=== PATIENT | female | born 1990 | race Caucasian/White ===

== ENCOUNTER 2017-02-20 14:41 | Emergency (ER) | payer MEDICARE, MEDICAID ==
[2017-02-20 16:01] LABS: BILIRUBIN,URINE NEGATIVE (NEGATIVE)
[2017-02-20 16:04] LABS: UA w/ MICROSCOPIC CHARGE YES
[2017-02-20 16:19] LABS: WBC,URINE >25 /HPF (0-5)
[2017-02-20 16:20] LABS: UR CULTURE IF IND INDICATED
[2017-02-20] MEDS ORDERED: NITROFURANTOIN MACRO 100 MG CAPSULE PO STA (16:34)
[2017-02-20] MEDS ORDERED: NITROFURANTOIN MACRO 100 MG CAPSULE PO ONE (16:41)
[2017-02-20 17:05] LABS: CALCIUM 8.8 mg/dL (8.5-10.3); CREATININE 0.7 mg/dL (0.4-1.0); POTASSIUM 3.8 mmol/L (3.5-5.0)
--- NOTE | 2017-02-20 17:29 | ED Physician Documentation ---
PD HPI FEMALE - Stated complaint Stated Complaint: FEMALE - Chief complaint Chief Complaint: General - History obtained from History obtained from: Patient - Additional information Additional information: The patient is a 26-year-old wheelchair bound, homeless female who presents with dysuria. She is wheelchair bound because of autonomic immune disorder causing autonomic neuropathy. She normally self catheterizes because of urinary retention, but because of her homelessness she is not able to find appropriate locations to perform self-catheterization. She recently had a urinalysis which was positive for infection, and her urologist suggested she come to the emergency department to have a Hernandez catheter placed. She reports low-grade fever and nausea. She denies vomiting. Review of Systems Constitutional: reports: Fever (low-grade) Nose: denies: Congestion Throat: denies: Sore throat Cardiac: denies: Chest pain / pressure Respiratory: denies: Dyspnea, Cough GI: reports: Nausea. denies: Abdominal Pain, Vomiting : reports: Dysuria Skin: denies: Rash Musculoskeletal: denies: Back pain Neurologic: denies: Headache PD PAST MEDICAL HISTORY - Past Medical History Past Medical History: Yes Cardiovascular: Hypertension, Other Respiratory: Sleep apnea, Other Neuro: CVA, Other Endocrine/Autoimmune: Systemic lupus erythematosus GI: Other : Retention, Other Musculoskeletal: Fibromyalgia Other Past Medical History: Hypophosphatemia,Antiphospholipid antibody syndrome , mixed connective tissue deasea, myasthenia gravis, autonomic neuropathy, POTS - Past Surgical History Past Surgical History: Yes - Present Medications Home Medications: Ambulatory Orders Medication Instructions Recorded Confirmed Nitrofurantoin [Macrobid] 100 mg PO BID #10 capsule 02/20/17 - Allergies Allergies/Adverse Reactions: Allergies Allergy/AdvReac Type Severity Reaction Status Date / Time Penicillins Allergy Unknown Verified 02/20/17 16:49 - Social History Does the pt smoke?: No Smoking Status: Never smoker Does the pt drink ETOH?: No Does the pt have substance abuse?: No - Immunizations Immunizations are current?: Yes - POLST Patient has POLST: No PD ED PE NORMAL - Vitals Vital signs reviewed: Yes (normal) - General General: Alert and oriented X 3, Well developed/nourished, Other (Arrives via wheelchair.) - HEENT HEENT: Atraumatic, Pharynx benign - Neck Neck: No adenopathy, No JVD - Cardiac Cardiac: RRR, No murmur - Respiratory Respiratory: No respiratory distress, Clear bilaterally - Abdomen Abdomen: Soft, Non tender - Back Back: No CVA TTP - Derm Derm: No rash - Extremities Extremities: No edema, No calf tenderness / cord - Neuro Neuro: Alert and oriented X 3, Normal speech, Other (Decreased strength in the lower extremities, without acute focal motor deficit.) Results - Vitals Vitals: Oxygen O2 Source Room air - Labs Labs: Microbiology 02/20/17 15:40 Urine Culture - Preliminary Urine,Catheterized Laboratory Tests 02/20/17 02/20/17 15:40 16:52 Sodium 140 Potassium 3.8 Chloride 107 Carbon Dioxide 28 Anion Gap 5.0 L BUN 9 Creatinine 0.7 Estimated GFR (MDRD) 100 Glucose 98 Calcium 8.8 Urine Color DARK YELLOW Urine Clarity CLOUDY Urine pH 6.0 Ur Specific [place] >=1.030 H Urine Protein 30 H Urine Glucose (UA) NEGATIVE Urine Ketones 15 H Urine Occult Blood NEGATIVE Urine Nitrite POSITIVE H Urine Bilirubin NEGATIVE Urine Urobilinogen 1 (NORMAL) Ur Leukocyte Esterase SMALL H Urine RBC 0-5 Urine WBC >25 H Ur Squamous Epith Cells FEW Squamous Urine Bacteria Few Urine Mucus Moderate Strands Ur Microscopic Review INDICATED Urine Culture Comments INDICATED PD MEDICAL DECISION MAKING - ED course Complexity details: reviewed results, re-evaluated patient, considered differential, d/w patient ED course: The patient's presentation is significant for urinary tract infection in someone with a history of autonomic neuropathy with associated urinary retention. Her presentation does not suggest pyelonephritis or sepsis. Treatment in the emergency department included insertion of a Hernandez catheter with a leg bag, and administration of nitrofurantoin 100 mg orally. She is being discharged with a prescription for Macrobid. She declined evaluation by the medical billing specialist. She was given training with regard to catheter care. I discussed with her the expected course of illness, antibiotic treatment and outpatient follow-up, as well as potentially worrisome signs or symptoms that should prompt reevaluation in the emergency department. Departure - Departure Disposition: 01 Home, Self Care Clinical Impression: Wheelchair bound, Homelessness UTI (urinary tract infection) Qualifiers: Urinary tract infection type: acute cystitis Hematuria presence: without hematuria Qualified Code(s): N30.00 - Acute cystitis without hematuria Instructions: ED UTI Cystitis Female Prescriptions: Nitrofurantoin [Macrobid] 100 mg PO BID #10 capsule Comments: 1. Take Macrobid twice daily as prescribed. 2. Drink plenty of fluids, including cranberry juice. 3. Follow-up with your urologist next week as planned. 4. Return to the emergency department if you develop increasing abdominal pain , fever with shaking chills, persistent vomiting, or otherwise worsening symptoms. Discharge Date/Time: 02/20/17 18:15
[2017-02-20 18:00] VITALS: BP 124/81
== END 2017-02-20 18:15 | disposition home or self-care (01) ==
LOC: ED 14:41
DX: N30.00 Acute cystitis without hematuria (principal); M32.9 Systemic lupus erythematosus, unspecified; G90.9 Disorder of the autonomic nervous system, unspecified; I10 Essential (primary) hypertension; G47.30 Sleep apnea, unspecified; Z99.3 Dependence on wheelchair; Z59.0 Homelessness; Z86.73 Personal history of transient ischemic attack (TIA), and cerebral infarction without residual deficits
CPT/HCPCS: 36415; 51702; 80048; 81001; 87077; 87086; 87181; 99283; A9270; 81003